=== PATIENT | male | born 1970 | race Caucasian/White ===

== ENCOUNTER 2019-03-10 02:01 | Emergency (ER) | payer OTHER ==
[~2019-03-10] VITALS: Ht 167.6 cm; Wt 77.3 kg
[2019-03-10 02:06] VITALS: BP 166/100; PULSE 66; RESP 18; Ht 167.6 cm; Wt 77.3 kg
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
== END 2019-03-10 02:14 ==
LOC: E/R 02:01
DX: F10.920 Alcohol use, unspecified with intoxication, uncomplicated (principal); R40.2142 Coma scale, eyes open, spontaneous, at arrival to emergency department; R40.2362 Coma scale, best motor response, obeys commands, at arrival to emergency department; R40.2252 Coma scale, best verbal response, oriented, at arrival to emergency department
CPT/HCPCS: 99282